=== PATIENT | male | born 1965 | race Caucasian/White ===

== ENCOUNTER 2023-09-21 21:09 | Emergency (ER) | payer MEDICAID, OTHER ==
[~2023-09-21] VITALS: Ht 182.9 cm; Wt 109.0 kg
[2023-09-21 21:16] VITALS: TEMP 98.3; O2SAT 98
[2023-09-21] MEDS ORDERED: HYDROCODONE/ACETAMINOPHEN 10/325MG TABLET PO ONE (21:45)
[2023-09-21] MEDS ORDERED: CYCLOBENZAPRINE 10MG TABLET PO ONE (21:45)
[2023-09-21] MEDS ORDERED: NAPR-1176 MT (23:42)
[2023-09-21] MEDS ORDERED: LIDO700A15 TP (23:44)
[2023-09-22] MEDS ORDERED: CYCL10TA21 MT (00:40)
[2023-09-22] MEDS ORDERED: LIDOCAINE 5% PATCH TOP SCH (00:45)
[2023-09-22] MEDS ORDERED: KETOROLAC 30MG/ML VIAL IM ONE (00:45)
[2023-09-22] MEDS ORDERED: CYCLOBENZAPRINE 10MG TABLET PO NR (01:15)
[2023-09-22 01:17] VITALS: BP 150/73; PULSE 90; RESP 14
== END 2023-09-22 01:33 | disposition home or self-care (01) ==
LOC: ER 21:09
DX: G89.29 Other chronic pain (principal); M54.9 Dorsalgia, unspecified; I10 Essential (primary) hypertension; N20.0 Calculus of kidney
CPT/HCPCS: 99283; 96372; J1885